=== PATIENT | female | born 1940 | race Caucasian/White ===

== ENCOUNTER 2023-11-14 18:46 | Inpatient (IN) | payer MEDICARE ==
[~2023-11-14] VITALS: Ht 162.6 cm; Wt 72.1 kg
[2023-11-14] MEDS ORDERED: CELE100C PO (19:20)
[2023-11-14] MEDS ORDERED: MIRT7.5T10 PO (19:20)
[2023-11-14] MEDS ORDERED: ACET-2605 PO (19:20)
[2023-11-14] MEDS ORDERED: SERT100T PO (19:20)
[2023-11-14] MEDS ORDERED: LIDO73LI TP (19:20)
[2023-11-14] MEDS ORDERED: SERT50TA PO (19:20)
[2023-11-14] MEDS ORDERED: DICL100G34 TP (19:20)
[2023-11-14] MEDS ORDERED: NYST15PO4 TP (19:20)
[2023-11-14] MEDS ORDERED: METF-440 PO (19:20)
[2023-11-14] MEDS ORDERED: FERR325T28 PO (19:20)
[2023-11-14] MEDS ORDERED: MAG-5 PO (19:20)
[2023-11-14] MEDS ORDERED: SENN-261 PO (19:20)
[2023-11-14] MEDS ORDERED: CHOL100043 PO (19:20)
[2023-11-14] MEDS ORDERED: NUT.237L45 PO (19:20)
[2023-11-14] MEDS ORDERED: GABA-532 PO (19:20)
[2023-11-14] MEDS ORDERED: MULT-213 PO (19:20)
[2023-11-14] MEDS ORDERED: ARIP10TA9 PO (19:20)
[2023-11-14] MEDS ORDERED: ARIP5TAB10 PO (19:20)
[2023-11-14 20:07] LABS: BASOPHILS # (AUTO) 0.1 K/uL (0.0-0.2); BASOPHILS % (AUTO) 0.7 % (0.0-2.0); EOSINOPHILS # (AUTO) 0.3 K/uL (0.0-0.7); EOSINOPHILS % (AUTO) 3.4 % (0.0-6.0); HEMATOCRIT 32 % (33-45); HEMOGLOBIN 10.8 g/dL (11.5-14.8); LYMPHOCYTES # (AUTO) 1.9 K/uL (0.8-4.8); LYMPHOCYTES % (AUTO) 19.1 % (20.0-44.0); MEAN CORPUSCULAR HEMOGLOBIN 31 PG (26.0-33.0); MEAN CORPUSCULAR HGB CONC 34 g/dl (31.0-36.0); MEAN CORPUSCULAR VOLUME 91 fL (82-100); MONOCYTES # (AUTO) 0.7 K/uL (0.1-1.30); MONOCYTES % (AUTO) 6.8 % (2.0-12.0); NEUTROPHILS # (AUTO) 7.1 K/uL (1.8-8.9); PLATELET COUNT (AUTO) 265 K/uL (150-450); RED BLOOD CELL COUNT(AUTO) 3.54 MIL/uL (4.0-5.2); RED CELL DISTRIBUTION WIDTH 14.4 % (11.5-15.0); WHITE BLOOD COUNT (AUTO) 10.1 K/uL (4.3-11.0)
[2023-11-14 20:15] LABS: CALCIUM, SERUM 8.9 mg/dL (8.5-10.1); CARBON DIOXIDE 23 mmol/L (21-32); CHLORIDE 104 mmol/L (98-107); CREATININE 0.7 mg/dL (0.6-1.3); GLUCOSE 86 mg/dL (74-106); POTASSIUM 3.6 mmol/L (3.5-5.1); SODIUM SERUM 137 mmol/L (136-145); UREA NITROGEN, BLOOD 31 mg/dL (7-18)
[2023-11-14 20:20] LABS: ACETAMINOPHEN 8 ug/ml (10-30); ALANINE AMINOTRANSFERASE 16 U/L (12-78); ALBUMIN 3.1 g/dL (3.4-5.0); ALCOHOL, BLOOD < 3 mg/dL (0-10); ALKALINE PHOSPHATASE 83 U/L (46-116); ASPARTATE AMINOTRANSFERASE 13 U/L (15-37); BILIRUBIN,DIRECT 0.2 mg/dL (0.0-0.2); BILIRUBIN,TOTAL 0.6 mg/dL (0.2-1.0); SALICYLATE 3.1 mg/dL (2.8-20.0); TOTAL PROTEIN, SERUM 6.9 g/dL (6.4-8.2)
[2023-11-14 23:35] VITALS: BP 126/58; TEMP 97.3; O2SAT 96
[2023-11-15] MEDS ORDERED: MAG HYDROX/AL HYDROX/SIMETH 30 ML UDC PO PRN
[2023-11-15] MEDS ORDERED: TEMAZEPAM 7.5 MG CAPSULE PO PRN
[2023-11-15] MEDS ORDERED: MAGNESIUM HYDROXIDE 30 ML UDC PO PRN
[2023-11-15] MEDS ORDERED: ACETAMINOPHEN 325 MG TABLET PO PRN
[2023-11-15] MEDS: BLOOD SUGAR DIAGNOSTIC 1 EACH STRIP IN ONE (00:03)
[2023-11-15 07:35] LABS: ALBUMIN 2.8 g/dL (3.4-5.0); BILIRUBIN,TOTAL 0.6 mg/dL (0.2-1.0); CALCIUM, SERUM 8.8 mg/dL (8.5-10.1); CREATININE 0.7 mg/dL (0.6-1.3); POTASSIUM 3.7 mmol/L (3.5-5.1); TOTAL PROTEIN, SERUM 6.5 g/dL (6.4-8.2)
[2023-11-15 08:00] VITALS: BP 115/65; TEMP 98; O2SAT 96
[2023-11-15] MEDS: FERROUS SULFATE (325 MG) 325 MG/TAB TABLET PO SCH (08:21)
[2023-11-15] MEDS: MULTIVIT W/MINERALS 1 TAB TABLET PO SCH (08:21)
[2023-11-15] MEDS: GLUCERNA SHAKE 237 ML CAN PO SCH (08:21)
[2023-11-15] MEDS: GABAPENTIN 100 MG CAPSULE PO SCH (08:21)
[2023-11-15] MEDS: METFORMIN 500 MG TABLET PO SCH (08:21)
[2023-11-15] MEDS: CHOLECALCIFEROL 1,000 UNIT TABLET (VIT D3) PO SCH (08:21)
[2023-11-15] MEDS: ENOXAPARIN SODIUM 40 MG/0.4 ML DISP.SYRIN SQ SCH (08:24)
[2023-11-15] MEDS: risperiDONE 0.25 MG TABLET PO SCH (12:52)
[2023-11-15 16:00] VITALS: BP 118/60; TEMP 98.6; O2SAT 98
[2023-11-15] MEDS: OXCARBAZEPINE 150 MG TABLET PO SCH (16:15)
[2023-11-15 20:00] VITALS: BP 119/68; TEMP 98.1; O2SAT 97
[2023-11-15] MEDS: Z GUARD REMEDY 4 OZ OINT TP SCH (21:08)
[2023-11-15] MEDS: BENZTROPINE MESYLATE (1 MG) 1 MG TABLET PO SCH (22:06)
[2023-11-16 08:00] VITALS: BP 123/56; TEMP 97.6; O2SAT 95
[2023-11-16] MEDS: CLOTRIMAZOLE 1% 15 GM TUBE TP SCH (09:49)
[2023-11-16 16:00] VITALS: BP 112/57; TEMP 97.6; O2SAT 98
[2023-11-16 20:00] VITALS: BP 127/65; TEMP 98.2; O2SAT 97
[2023-11-17 08:00] VITALS: BP 108/59; TEMP 98; O2SAT 97
[2023-11-17] MEDS: SENNOSIDES 8.6 MG TABLET PO PRN (09:47)
[2023-11-17 16:00] VITALS: BP 150/79; TEMP 98; O2SAT 99
[2023-11-17 20:00] VITALS: BP 156/98; TEMP 97.5; O2SAT 98
[2023-11-18 20:00] VITALS: BP 122/60; TEMP 98; O2SAT 98
[2023-11-19 08:00] VITALS: BP 89/48; TEMP 98.1; O2SAT 94
[2023-11-19] MEDS: GLUCERNA SHAKE 237 ML CAN PO SCH (11:40)
[2023-11-19 16:00] VITALS: BP 130/79; TEMP 97.9; O2SAT 98
[2023-11-19 16:10] LABS: APPEARANCE,URINE CLOUDY (CLEAR); BILIRUBIN,URINE NEGATIVE (NEGATIVE); BLOOD, URINE 2+ Ery/uL (NEGATIVE); COLOR,URINE YELLOW (YELLOW); KETONES,URINE TRACE mg/dL (NEGATIVE); LEUKOCYTE ESTERASE ,URINE 3+ (NEGATIVE); NITRITE, URINE POSITIVE (NEGATIVE); PH,URINE 8.5 (5.0-8.0); PROTEIN,URINE 3+ mg/dl (NEGATIVE); UGLUCOSE NEGATIVE (NEGATIVE)
[2023-11-19 17:08] LABS: RBC,URINE 21-50 /HPF (0-2)
[2023-11-19 17:09] LABS: ADD URINE CULTURE YES; BACTERIA,URINE 4+ /HPF (None Seen); SQUAMOUS EPITHELIAL CELL,UR 0-2 /HPF (None Seen); TRIPLE PHOSPHATE CRYSTAL,UR Few /HPF (None Seen); WBC,URINE 51-80 /HPF (0-3)
[2023-11-19 17:10] LABS: MUCUS,URINE Moderate /LPF (None Seen)
[2023-11-19 20:41] VITALS: BP 122/67; TEMP 98.1; O2SAT 96
[2023-11-19] MEDS: CEPHALEXIN MONOHYDRATE 500 MG CAPSULE PO SCH (21:15)
[2023-11-20 08:00] VITALS: BP 114/66; TEMP 97.5; O2SAT 96
[2023-11-20 15:30] VITALS: BP 120/65; TEMP 97.5; O2SAT 98
[2023-11-20] MEDS: BENZTROPINE MESYLATE (1 MG) 1 MG TABLET PO SCH (17:26)
[2023-11-20] MEDS: risperiDONE 1 MG TABLET PO SCH (17:26)
[2023-11-20 21:31] VITALS: BP 110/55; TEMP 97.9; O2SAT 96
[2023-11-21 08:00] VITALS: BP 123/53; TEMP 97.9; O2SAT 96
[2023-11-21 16:00] VITALS: BP 129/52; TEMP 98.7; O2SAT 100
[2023-11-21 20:00] VITALS: BP 98/82; TEMP 98.2; O2SAT 97
[2023-11-21 22:11] VITALS: BP 98/82; TEMP 98.2; O2SAT 97
[2023-11-22 08:00] VITALS: BP 123/62; TEMP 97.8; O2SAT 96
[2023-11-22] MEDS: LORAZEPAM 0.5 MG TABLET PO PRN (10:19)
[2023-11-22] MEDS: SERTRALINE HCL 50 MG TABLET PO SCH (13:04)
[2023-11-22 16:00] VITALS: BP 121/61; TEMP 98; O2SAT 97
[2023-11-22 20:00] VITALS: BP 121/71; TEMP 98.1; O2SAT 96
[2023-11-23 08:00] VITALS: BP 120/56; TEMP 98; O2SAT 97
[2023-11-23] MEDS: SERTRALINE HCL 25 MG TABLET PO ONE (13:43)
[2023-11-23 16:00] VITALS: BP 113/53; TEMP 98.1; O2SAT 97
[2023-11-23 19:58] VITALS: BP 124/63; TEMP 98.1; O2SAT 97
[2023-11-24 08:00] VITALS: BP 121/80; TEMP 98.6; O2SAT 95
[2023-11-24] MEDS: SERTRALINE HCL 25 MG TABLET PO SCH (12:17)
[2023-11-24 16:00] VITALS: BP 118/55; TEMP 97.8; O2SAT 97
[2023-11-24 17:04] LABS: ALANINE AMINOTRANSFERASE 39 U/L (12-78); ALBUMIN 2.6 g/dL (3.4-5.0); ALKALINE PHOSPHATASE 92 U/L (46-116); ASPARTATE AMINOTRANSFERASE 20 U/L (15-37); BILIRUBIN,TOTAL 0.4 mg/dL (0.2-1.0); CALCIUM, SERUM 8.6 mg/dL (8.5-10.1); CARBON DIOXIDE 29 mmol/L (21-32); CHLORIDE 106 mmol/L (98-107); CREATININE 0.8 mg/dL (0.6-1.3); GLUCOSE 98 mg/dL (74-106); POTASSIUM 4.3 mmol/L (3.5-5.1); SODIUM SERUM 140 mmol/L (136-145); TOTAL PROTEIN, SERUM 6.2 g/dL (6.4-8.2); UREA NITROGEN, BLOOD 15 mg/dL (7-18)
[2023-11-24 20:40] VITALS: BP 109/51; TEMP 98.2; O2SAT 95
[2023-11-25 08:00] VITALS: BP 128/65; TEMP 98.6; O2SAT 95
[2023-11-25 16:00] VITALS: BP 122/64; TEMP 98.5; O2SAT 94
[2023-11-25] MEDS: DICLOFENAC TOPICAL 100 GM TUBE TP PRN (21:06)
[2023-11-25 22:14] VITALS: BP 105/52; TEMP 98.2; O2SAT 98
[2023-11-26 08:00] VITALS: BP 123/69; TEMP 98.7; O2SAT 98
[2023-11-26 16:00] VITALS: BP 115/64; TEMP 98.1; O2SAT 98
[2023-11-26 20:00] VITALS: BP 103/51; TEMP 97.9; O2SAT 95
[2023-11-26 20:27] VITALS: BP 103/51; TEMP 97.9; O2SAT 95
[2023-11-27 08:00] VITALS: BP 119/53; TEMP 97.8; O2SAT 96
[2023-11-27] MEDS: SERTRALINE HCL 25 MG TABLET PO SCH (12:13)
[2023-11-27] MEDS: OXCARBAZEPINE 150 MG TABLET PO SCH (12:14)
[2023-11-27 16:00] VITALS: BP 123/59; TEMP 97.9; O2SAT 95
== END 2023-11-27 16:30 | DRG 885 ==
LOC: ER 18:53 → GPS 22:52
PROVIDERS: ADMIT Psychiatry & Neurology Psychosomatic Medicine; ATTEND Nurse Practitioner Family
DX: F32.3 Major depressive disorder, single episode, severe with psychotic features (principal); D68.59 Other primary thrombophilia; M17.0 Bilateral primary osteoarthritis of knee; Z74.01 Bed confinement status; F41.9 Anxiety disorder, unspecified; I10 Essential (primary) hypertension; L60.3 Nail dystrophy; Z20.822 Contact with and (suspected) exposure to COVID-19; D50.9 Iron deficiency anemia, unspecified; M62.81 Muscle weakness (generalized); F39 Unspecified mood [affective] disorder; L97.529 Non-pressure chronic ulcer of other part of left foot with unspecified severity; M21.612 Bunion of left foot; E11.9 Type 2 diabetes mellitus without complications; Z79.84 Long term (current) use of oral hypoglycemic drugs
CPT/HCPCS: 36415; 80048-TC; 80053-TC; 80061-TC; 80076-TC; 81001; 82962-TC; 85025-TC; 87081-TC; 87086-TC; 97110-TC; 97112-TC; 97530-TC; G0480; J1650

== ENCOUNTER 2023-12-12 15:44 | Inpatient (IN) | payer MEDICARE, BC ==
[~2023-12-12] VITALS: Ht 162.6 cm; Wt 69.9 kg
[2023-12-12] VITALS: BP 132/61; TEMP 97.1; O2SAT 99
[~2023-12-12 15:44] MED LIST: ACET-2605 PO; ARIP10TA9 PO; ARIP5TAB10 PO; CELE100C PO; CEPH500C2 PO; CHOL100043 PO; DICL100G34 TP; FERR325T28 PO; GABA-532 PO; LIDO73LI TP; MAG-5 PO; METF-440 PO; MIRT7.5T10 PO; MULT-213 PO; NUT.237L45 PO; NYST15PO4 TP; SENN-261 PO; SERT100T PO; SERT50TA PO
[2023-12-12 16:33] LABS: BASOPHILS % (AUTO) 0.2 % (0.0-2.0); EOSINOPHILS # (AUTO) 0.1 K/uL (0.0-0.7); HEMATOCRIT 29 % (33-45); HEMOGLOBIN 9.7 g/dL (11.5-14.8); LYMPHOCYTES # (AUTO) 1.4 K/uL (0.8-4.8); LYMPHOCYTES % (AUTO) 11.8 % (20.0-44.0); MEAN CORPUSCULAR HEMOGLOBIN 30 PG (26.0-33.0); MEAN CORPUSCULAR HGB CONC 33 g/dl (31.0-36.0); MEAN CORPUSCULAR VOLUME 92 fL (82-100); MONOCYTES # (AUTO) 0.7 K/uL (0.1-1.30); MONOCYTES % (AUTO) 5.7 % (2.0-12.0); NEUTROPHILS # (AUTO) 9.5 K/uL (1.8-8.9); NEUTROPHILS % (AUTO) 81.3 % (43.0-81.0); PLATELET COUNT (AUTO) 305 K/uL (150-450); RED BLOOD CELL COUNT(AUTO) 3.21 MIL/uL (4.0-5.2); RED CELL DISTRIBUTION WIDTH 14.3 % (11.5-15.0); WHITE BLOOD COUNT (AUTO) 11.7 K/uL (4.3-11.0)
[2023-12-12 16:45] LABS: CARBON DIOXIDE 27 mmol/L (21-32); CHLORIDE 104 mmol/L (98-107); CREATININE 0.9 mg/dL (0.6-1.3); GLUCOSE 145 mg/dL (74-106); POTASSIUM 3.6 mmol/L (3.5-5.1); SODIUM SERUM 138 mmol/L (136-145); UREA NITROGEN, BLOOD 34 mg/dL (7-18)
[2023-12-12 16:59] LABS: NT-PRO BNP 395 pg/mL (0-125)
[2023-12-12] MEDS ORDERED: BENZ1TAB7 PO (18:00)
[2023-12-12] MEDS ORDERED: NA P133E RC (18:00)
[2023-12-12] MEDS ORDERED: MAGN400O6 PO (18:00)
[2023-12-12] MEDS ORDERED: ALLA266C2 TP (18:00)
[2023-12-12] MEDS ORDERED: ACET325T53 PO (18:00)
[2023-12-12] MEDS ORDERED: BISA10SU11 RC (18:00)
[2023-12-12] MEDS ORDERED: RISP1TAB7 PO (18:00)
[2023-12-12] MEDS ORDERED: DOCU100T2 PO (18:00)
[2023-12-12] MEDS ORDERED: CRAN425C6 PO (18:00)
[2023-12-12] MEDS ORDERED: OXCA150T13 PO (18:00)
[2023-12-12] MEDS: CEFEPIME 1 GM in IV D5W 50 ML IV ONE (18:42)
[2023-12-12] MEDS: VANCOMYCIN 1 GM in IV D5W 250 ML IV ONE (19:15)
[2023-12-12] MEDS ORDERED: ONDANSETRON HCL/PF 4 MG/2 ML VIAL IVP PRN (20:00)
[2023-12-12] MEDS ORDERED: IV NS 0.9% 1,000 ML IV PRN (20:00)
[2023-12-12] MEDS ORDERED: ZOLPIDEM TARTRATE 5 MG TABLET PO PRN (20:00)
[2023-12-12] MEDS ORDERED: ACETAMINOPHEN 325 MG TABLET PO PRN ×2 (20:00)
[2023-12-12] MEDS ORDERED: Z GUARD REMEDY 4 OZ OINT TP PRN (20:00)
[2023-12-12] MEDS ORDERED: SENNOSIDES 8.6 MG TABLET PO PRN (20:00)
[2023-12-12] MEDS ORDERED: DEXTROSE 50%-WATER 50 ML DISP.SYRIN IV PRN (20:00)
[2023-12-12] MEDS ORDERED: DICLOFENAC TOPICAL 100 GM TUBE TP PRN (20:00)
[2023-12-12] MEDS ORDERED: MAG HYDROX/AL HYDROX/SIMETH 30 ML UDC PO PRN (20:00)
[2023-12-12] MEDS ORDERED: MAGNESIUM HYDROXIDE 30 ML UDC PO PRN (20:00)
[2023-12-12] MEDS: BLOOD SUGAR DIAGNOSTIC 1 EACH STRIP IN SCH (22:00)
[2023-12-12] MEDS ORDERED: CEFEPIME 1 GM VIAL ONE (22:22)
[2023-12-12] MEDS: CEFEPIME 1 GM in IV D5W 50 ML IV SCH (22:39)
[2023-12-13] VITALS: BP 132/61; TEMP 97.1; O2SAT 99
[2023-12-13 04:00] VITALS: BP 140/64; TEMP 98.9; O2SAT 96
[2023-12-13 07:34] LABS: BASOPHILS % (AUTO) 0.2 % (0.0-2.0); EOSINOPHILS # (AUTO) 0.4 K/uL (0.0-0.7); EOSINOPHILS % (AUTO) 3.7 % (0.0-6.0); HEMATOCRIT 27 % (33-45); HEMOGLOBIN 9.1 g/dL (11.5-14.8); LYMPHOCYTES % (AUTO) 10.1 % (20.0-44.0); MEAN CORPUSCULAR HEMOGLOBIN 32 PG (26.0-33.0); MEAN CORPUSCULAR HGB CONC 34 g/dl (31.0-36.0); MEAN CORPUSCULAR VOLUME 92 fL (82-100); MONOCYTES # (AUTO) 0.6 K/uL (0.1-1.30); MONOCYTES % (AUTO) 6.2 % (2.0-12.0); NEUTROPHILS # (AUTO) 8.2 K/uL (1.8-8.9); NEUTROPHILS % (AUTO) 79.8 % (43.0-81.0); PLATELET COUNT (AUTO) 282 K/uL (150-450); RED BLOOD CELL COUNT(AUTO) 2.89 MIL/uL (4.0-5.2); RED CELL DISTRIBUTION WIDTH 14.7 % (11.5-15.0); WHITE BLOOD COUNT (AUTO) 10.3 K/uL (4.3-11.0)
[2023-12-13 07:40] LABS: CALCIUM, SERUM 8.3 mg/dL (8.5-10.1); CREATININE 0.6 mg/dL (0.6-1.3); MAGNESIUM 1.9 mg/dL (1.8-2.4); PHOSPHORUS 2.6 mg/dL (2.5-4.9); POTASSIUM 3.2 mmol/L (3.5-5.1)
[2023-12-13 08:00] VITALS: BP 120/65; TEMP 97.7; O2SAT 100
[2023-12-13] MEDS ORDERED: Medication Not On Formulary EA (Cranberry Extract (Cranberry) 425 MG) PO SCH (09:00)
[2023-12-13] MEDS: OXCARBAZEPINE 150 MG TABLET PO SCH (09:07)
[2023-12-13] MEDS: MULTIVIT W/MINERALS 1 TAB TABLET PO SCH (09:07)
[2023-12-13] MEDS: GABAPENTIN 100 MG CAPSULE PO SCH (09:07)
[2023-12-13] MEDS: CHOLECALCIFEROL 1,000 UNIT TABLET (VIT D3) PO SCH (09:07)
[2023-12-13] MEDS: risperiDONE 1 MG TABLET PO SCH (09:07)
[2023-12-13] MEDS: DOCUSATE SODIUM 100 MG CAPSULE PO SCH (09:07)
[2023-12-13] MEDS: BENZTROPINE MESYLATE (1 MG) 1 MG TABLET PO SCH (09:07)
[2023-12-13] MEDS: FERROUS SULFATE (325 MG) 325 MG/TAB TABLET PO SCH (09:07)
[2023-12-13] MEDS: GLUCERNA SHAKE 237 ML CAN PO SCH (09:08)
[2023-12-13] MEDS: POTASSIUM CHLORIDE 20 MEQ TAB.PRT.SR PO SCH (10:25)
[2023-12-13 12:00] VITALS: BP 124/68; TEMP 98.2; O2SAT 97
[2023-12-13] MEDS: SERTRALINE HCL 50 MG TABLET PO SCH ×2 (12:14→17:13)
[2023-12-13] MEDS: ENOXAPARIN SODIUM 40 MG/0.4 ML DISP.SYRIN SQ SCH (14:20)
[2023-12-13 16:00] VITALS: BP 112/79; TEMP 97.9; O2SAT 98
[2023-12-13] MEDS: VANCOMYCIN HCL 1.25 GM in IV D5W 250 ML IV SCH (17:13)
[2023-12-13 20:00] VITALS: BP 126/63; TEMP 98.2; O2SAT 97
[2023-12-14] VITALS (8 sets, daily range): BP systolic 99–139; BP diastolic 53–82; TEMP 97.6–98.6; O2SAT 93–100
[2023-12-14 07:08] LABS: BASOPHILS % (AUTO) 0.5 % (0.0-2.0); EOSINOPHILS # (AUTO) 0.4 K/uL (0.0-0.7); EOSINOPHILS % (AUTO) 4.9 % (0.0-6.0); HEMATOCRIT 25 % (33-45); HEMOGLOBIN 8.4 g/dL (11.5-14.8); LYMPHOCYTES # (AUTO) 1.1 K/uL (0.8-4.8); LYMPHOCYTES % (AUTO) 13.8 % (20.0-44.0); MEAN CORPUSCULAR HEMOGLOBIN 31 PG (26.0-33.0); MEAN CORPUSCULAR HGB CONC 34 g/dl (31.0-36.0); MEAN CORPUSCULAR VOLUME 92 fL (82-100); MONOCYTES # (AUTO) 0.6 K/uL (0.1-1.30); MONOCYTES % (AUTO) 7.3 % (2.0-12.0); NEUTROPHILS # (AUTO) 6.1 K/uL (1.8-8.9); NEUTROPHILS % (AUTO) 73.5 % (43.0-81.0); PLATELET COUNT (AUTO) 272 K/uL (150-450); RED CELL DISTRIBUTION WIDTH 14.4 % (11.5-15.0); WHITE BLOOD COUNT (AUTO) 8.3 K/uL (4.3-11.0)
[2023-12-14 07:22] LABS: CALCIUM, SERUM 8.4 mg/dL (8.5-10.1); CARBON DIOXIDE 23 mmol/L (21-32); CHLORIDE 100 mmol/L (98-107); CREATININE 0.5 mg/dL (0.6-1.3); GLUCOSE 108 mg/dL (74-106); MAGNESIUM 1.8 mg/dL (1.8-2.4); POTASSIUM 3.7 mmol/L (3.5-5.1); SODIUM SERUM 132 mmol/L (136-145); UREA NITROGEN, BLOOD 17 mg/dL (7-18)
[2023-12-14 07:54] LABS: PHOSPHORUS 2.2 mg/dL (2.5-4.9)
[2023-12-14] MEDS: PROSOURCE / PROSTAT (PYXIS) 30 ML UDC PO SCH (08:56)
[2023-12-14 15:06] LABS: HEPATITIS B CORE AB, IgM Negative (Negative); HEPATITIS B CORE AB, TOTAL Negative (Negative); HEPATITIS B SURFACE AB Non Reactive (.); HEPATITIS Be AG Negative (Negative)
[2023-12-14] MEDS: K PHOS NEUTRAL 250 MG TABLET PO ONE (16:19)
[2023-12-14] MEDS: INSULIN REGULAR, HUMAN 100 UNIT/ML 3 ML VIAL SQ PRN (21:25)
[2023-12-15] VITALS (8 sets, daily range): BP systolic 99–155; BP diastolic 51–95; TEMP 97.3–98.2; O2SAT 95–98
[2023-12-15 08:34] LABS: CALCIUM, SERUM 8.2 mg/dL (8.5-10.1); CARBON DIOXIDE 28 mmol/L (21-32); CHLORIDE 103 mmol/L (98-107); CREATININE 0.5 mg/dL (0.6-1.3); GLUCOSE 106 mg/dL (74-106); POTASSIUM 3.9 mmol/L (3.5-5.1); SODIUM SERUM 137 mmol/L (136-145); UREA NITROGEN, BLOOD 14 mg/dL (7-18)
[2023-12-16] VITALS: BP 122/63; TEMP 98; O2SAT 96
[2023-12-16 06:00] VITALS: BP 117/56; TEMP 97.4; O2SAT 98
[2023-12-16 07:36] LABS: BASOPHILS # (AUTO) 0.1 K/uL (0.0-0.2); BASOPHILS % (AUTO) 0.6 % (0.0-2.0); EOSINOPHILS # (AUTO) 0.4 K/uL (0.0-0.7); EOSINOPHILS % (AUTO) 4.4 % (0.0-6.0); HEMATOCRIT 26 % (33-45); HEMOGLOBIN 8.4 g/dL (11.5-14.8); LYMPHOCYTES # (AUTO) 1.8 K/uL (0.8-4.8); LYMPHOCYTES % (AUTO) 19.2 % (20.0-44.0); MEAN CORPUSCULAR HEMOGLOBIN 31 PG (26.0-33.0); MEAN CORPUSCULAR HGB CONC 33 g/dl (31.0-36.0); MEAN CORPUSCULAR VOLUME 94 fL (82-100); MONOCYTES # (AUTO) 0.7 K/uL (0.1-1.30); MONOCYTES % (AUTO) 7.3 % (2.0-12.0); NEUTROPHILS # (AUTO) 6.5 K/uL (1.8-8.9); NEUTROPHILS % (AUTO) 68.5 % (43.0-81.0); PLATELET COUNT (AUTO) 308 K/uL (150-450); RED BLOOD CELL COUNT(AUTO) 2.71 MIL/uL (4.0-5.2); RED CELL DISTRIBUTION WIDTH 14.9 % (11.5-15.0); WHITE BLOOD COUNT (AUTO) 9.5 K/uL (4.3-11.0)
[2023-12-16 07:48] VITALS: O2SAT 94
[2023-12-16 08:00] VITALS: BP 122/66; TEMP 97.5; O2SAT 98
[2023-12-16 08:02] LABS: CALCIUM, SERUM 8.3 mg/dL (8.5-10.1); CARBON DIOXIDE 24 mmol/L (21-32); CHLORIDE 103 mmol/L (98-107); CREATININE 0.6 mg/dL (0.6-1.3); GLUCOSE 107 mg/dL (74-106); POTASSIUM 4.1 mmol/L (3.5-5.1); SODIUM SERUM 135 mmol/L (136-145); UREA NITROGEN, BLOOD 19 mg/dL (7-18)
[2023-12-16] MEDS ORDERED: GUAIFENESIN/D-METHORPHAN HB 5 ML UDC PO PRN (11:30)
[2023-12-16 12:00] VITALS: BP 113/63; TEMP 97.7; O2SAT 98
[2023-12-17 23:06] LABS: HEPATITIS Be AB Non Reactive (Negative)
== END 2023-12-16 14:30 | DRG 193 ==
LOC: ER 15:50 → TELE1 20:52 → MEDSG1 12-16 11:18
PROVIDERS: ADMIT Nurse Practitioner Acute Care; ATTEND Nurse Practitioner Family
DX: J15.9 Unspecified bacterial pneumonia (principal); G93.41 Metabolic encephalopathy; J96.01 Acute respiratory failure with hypoxia; D68.59 Other primary thrombophilia; J90 Pleural effusion, not elsewhere classified; E11.9 Type 2 diabetes mellitus without complications; E86.0 Dehydration; I10 Essential (primary) hypertension; M19.90 Unspecified osteoarthritis, unspecified site; Z20.822 Contact with and (suspected) exposure to COVID-19; F03.90 Unspecified dementia, unspecified severity, without behavioral disturbance, psychotic disturbance, mood disturbance, and anxiety; Z74.09 Other reduced mobility; F09 Unspecified mental disorder due to known physiological condition; Z79.84 Long term (current) use of oral hypoglycemic drugs
CPT/HCPCS: 36415; 71045-TC; 80048-TC; 80202-TC; 82962-TC; 83735-TC; 83880; 84100-TC; 84484-TC; 85025-TC; 86704; 86705; 86706; 86707; 86803; 87040-TC; 87340; 87350; 92526; 92611-TC; 93307-TC; 94760-TC; 94799-TC; 97110-TC; 97530-TC; 97535-TC; A4223; G0378; J0692; J1650; J1815; J3370; J7050; J7060